=== PATIENT | male | born 1940 | race Caucasian/White ===

== ENCOUNTER 2016-03-07 08:58 | Day surgery (SDC) | payer MEDICARE, OTHER ==
[2016-03-07] VITALS (7 sets, daily range): BP systolic 102–136; BP diastolic 65–85; PULSE 73–83; RESP 16–20; TEMP 97.8–98.2; O2SAT 93–98
[~2016-03-07] VITALS: Ht 170.2 cm; Wt 84.1 kg
[~2016-03-07 08:58] MED LIST: ALFU10TA2 PO; ASPI1TAB69 PO; BRIM0.155 EACH EYE; CHOL5000 PO; CO Q100C9; HYDR1ELX PO; HYDR1SOL3 PO; LATA0.002 EACH EYE; LINA145C PO; MAGN250T2 PO; MELA3CAP; METO25TA3 PO; MULT1TAB84 PO; MULT400T PO; NITR1SUB3 SL; OMEG100010; OMEG1CAP53 PO; OMEP40CA2 PO; PARO30TA2 PO; SENO8.6T5 PO; VITA500T49 PO; ZETI10TA5 PO; prosvent
[2016-03-07] MEDS ORDERED: LIDOCAINE 1%/EPINEPHrine 1:100,000 SOLN 20 ML VIAL ONE (09:56)
[2016-03-07] MEDS ORDERED: SODIUM CHLOR 0.9% 1000 ML IV SCH (10:00)
[2016-03-07] MEDS ORDERED: fentaNYL CITRATE 250 MCG/5 ML AMP ONE (10:08)
[2016-03-07] MEDS ORDERED: MIDAZOLAM HCL 5 MG/5 ML VIAL ONE (10:08)
[2016-03-07] MEDS ORDERED: THROMBIN (TOPICAL) 5,000 UNIT VIAL ONE (10:32)
[2016-03-07] MEDS ORDERED: HYDROmorphone HCL 2 MG TAB PO PRN (11:00)
--- NOTE | 2016-03-07 11:35 | RADRPT ---
EXAM DATE/TIME: 03/07/2016 10:14 [facility] COMPARISON: No previous studies available for comparison. INDICATIONS : Liver lesions. SEDATION TIME: 30 minutes BIOPSY SITE: Anterior & right side MEDICATION(S): 1.) 3 mg midazolam (Versed) IV 2.) 200 mcg fentanyl (Sublimaze) IV DEVICE(S): 1.) 20 gauge Temno core biopsy needle MEDICAL HISTORY : Cardiovascular disease. Thymus cancer. SURGICAL HISTORY : Cardiac stent. ENCOUNTER: Initial ACUITY: 1 day PAIN SCORE: 0/10 LOCATION: Right A total of three core specimen(s) were obtained and sent to the laboratory for pathologic evaluation. PROCEDURE: 1. CT guided liver biopsy. 2. Conscious sedation with continuous EKG and oximetry monitoring. 3. EKG and oximetry remained stable throughout the procedure. Patient has history of malignant thymoma. Mediastinal biopsies were negative. The plan is to biopsy the PET positive lesion in the right lobe of the liver as well as the subxiphoi d region. The site was prepped in a sterile fashion. Full sterile technique was used, including cap, mask, peewee rile gloves and gown and a large sterile sheet. Hand hygiene and 2% chlorhexidine and/or betadine/al cohol prep was utilized per protocol for cutaneous antisepsis. The skin and subcutaneous tissues wer e infiltrated with local anesthetic solution. Under CT guidance an 18 gauge blunting was placed down to the expected location of the PET positive m ass in the right lobe of the liver. 3 cores were obtained from separate areas. Tract was embolized with Gelfoam and thrombin. Follow-up CT scan reveals no hemorrhage. The patient tolerated the procedure well and there were no complications. The patient was returned to the Radiology Outpatient Unit in stable condition. CONCLUSION: Uncomplicated CT guided biopsy of PET positive mass right lobe of the liver. Tract was embolized wit h Gelfoam and thrombin. Dane Parsons MD FACR on March 07, 2016 at 11:29 Board Certified Radiologist. This report was verified electronically.
--- NOTE | 2016-03-07 11:57 | RADRPT ---
EXAM DATE/TIME: 03/07/2016 10:14 [facility] COMPARISON: No previous studies available for comparison. INDICATIONS : Substernal mass. SEDATION TIME: minutes BIOPSY SITE: Substernum MEDICATION(S): 1.) 3 mg midazolam (Versed) IV 2.) 200 mcg fentanyl (Sublimaze) IV DEVICE(S): 1.) 20 gauge Temno core biopsy needle MEDICAL HISTORY : Cardiovascular disease. Thymus cancer. SURGICAL HISTORY : Cardiac stent. ENCOUNTER: Initial ACUITY: 1 day PAIN SCORE: 0/10 LOCATION: chest A total of one core specimen(s) were obtained and sent to the laboratory for pathologic evaluation. PROCEDURE: 1. CT guided soft tissue biopsy. 2. Conscious sedation with continuous EKG and oximetry monitoring. 3. EKG and oximetry remained stable throughout the procedure. Prior to the procedure informed consent was obtained. Any appropriate prior imaging studies were rev iewed. The site was prepped in a sterile fashion. Full sterile technique was used, including cap, mask, peewee rile gloves and gown and a large sterile sheet. Hand hygiene and 2% chlorhexidine and/or betadine/al cohol prep was utilized per protocol for cutaneous antisepsis. The skin and subcutaneous tissues wer e infiltrated with local anesthetic solution. Under CT guidance 20 gauge core was obtained of the PET positive mass sitting just anterior to the l eft lobe of the liver midline. Follow-up CT scan reveals no hemorrhage. The patient tolerated the procedure well and there were no complications. The patient was returned to the Radiology Outpatient Unit in stable condition. CONCLUSION: Uncomplicated CT guided biopsy of the subxiphoid soft tissue mass sitting anterior or arising from th e right lobe of the liver. Dane Parsons MD FACR on March 07, 2016 at 11:53 Board Certified Radiologist. This report was verified electronically.
== END 2016-03-07 14:53 | disposition home or self-care (01) ==
LOC: HRAD 08:58 → HRIP 08:58 → EDSTATUS 09:00 → HRAD 14:53
PROVIDERS: ATTEND Thoracic Surgery (Cardiothoracic Vascular Surgery)
DX: J98.59 Other diseases of mediastinum, not elsewhere classified (principal); K76.9 Liver disease, unspecified; R16.0 Hepatomegaly, not elsewhere classified; I25.10 Atherosclerotic heart disease of native coronary artery without angina pectoris; Z85.238 Personal history of other malignant neoplasm of thymus
CPT/HCPCS: 20206; 47000; 77012; 88307; 88333; 99152; J2250; J3010; J7030